=== PATIENT | male | born 1960 | race Caucasian/White ===

== ENCOUNTER 2018-02-17 17:31 | Inpatient (IN) | payer BC, OTHER ==
[~2018-02-17] VITALS: Ht 190.5 cm; Wt 110.5 kg
[2018-02-17 19:43] LABS: BASOPHILS # (AUTO) 0.01 x10^3/uL (0-0.1); BASOPHILS % (AUTO) 0 % (0-1); EOSINOPHILS # (AUTO) 0.22 x10^3/uL (0-0.4); EOSINOPHILS % (AUTO) 2 % (1-7); LYMPHOCYTES # (AUTO) 1.65 x10^3/uL (1-3.4); LYMPHOCYTES % (AUTO) 15 % (22-44); MD NO; MEAN CORPUSCULAR HEMOGLOBIN 31.7 pg (27.5-34.5); MEAN CORPUSCULAR HGB CONC 34.2 g/dL (33.2-36.2); MEAN CORPUSCULAR VOLUME 92.7 fL (81-97); MEAN PLATELET VOLUME 7.9 fL (7.4-10.4); MONOCYTES # (AUTO) 0.94 x10^3/uL (0.2-0.8); MONOCYTES % (AUTO) 8 % (2-9); NEUTROPHILS # (AUTO) 8.42 x10^3/uL (1.8-6.8); NEUTROPHILS % (AUTO) 75 % (42-75); PLATELET COUNT 193 x10^3/uL (130-400); RED BLOOD COUNT 4.67 x10^6/uL (4.38-5.82); RED CELL DISTRIBUTION WIDTH 13.5 % (9.4-14.8)
[2018-02-17 19:52] LABS: INTERNATIONAL NORMALIZED RATIO 0.97 (0.93-1.1); PROTHROMBIN TIME 10.3 Seconds (9.6-11.5)
[2018-02-17 19:53] LABS: ALBUMIN 3.6 g/dL (3.4-5.0); ANION GAP 5 mmol/L (5-15); CALCIUM 8.7 mg/dL (8.5-10.1); CHLORIDE 104 mmol/L (98-107)
[2018-02-17 19:54] LABS: CREATININE 0.94 mg/dL (0.7-1.3)
[2018-02-17] MEDS ORDERED: ENOXAPARIN 100 MG/ML ONE (20:26)
[2018-02-17] MEDS ORDERED: ENOXAPARIN 40 MG/0.4 ML ONE (20:26)
[2018-02-17] MEDS ORDERED: ENOXAPARIN 120MG/0.8ML SQ SCH (20:30)
[2018-02-17] MEDS ORDERED: WARFARIN HIGH DOSE PROTOCOL XX PRN (21:00)
[2018-02-17] MEDS ORDERED: BISACODYL 10 MG SUPP PR PRN (21:00)
[2018-02-17] MEDS ORDERED: POLYETHYLENE GLYCOL 17 GM PACKET PO PRN (21:00)
[2018-02-17] MEDS ORDERED: ONDANSETRON ODT 4 MG PO PRN (21:00)
[2018-02-17] MEDS ORDERED: NICOTINE 21 MG/24 HR PATCH.TD24 TD SCH (21:00)
[2018-02-17] MEDS ORDERED: ACETAMINOPHEN 325 MG TABLET PO PRN (21:00)
[2018-02-17] MEDS: SODIUM CHLORIDE FLUSH 10ML SYR IVF SCH (21:00)
[2018-02-17 23:15] VITALS: BP 105/55
[2018-02-17] MEDS ORDERED: WARFARIN 10 MG TABLET PO-COUM ONE (23:30)
[2018-02-18 02:16] VITALS: BP 103/56
[2018-02-18 05:52] LABS: BASOPHILS # (AUTO) 0.04 x10^3/uL (0-0.1); BASOPHILS % (AUTO) 0 % (0-1); EOSINOPHILS # (AUTO) 0.24 x10^3/uL (0-0.4); EOSINOPHILS % (AUTO) 3 % (1-7); LYMPHOCYTES % (AUTO) 21 % (22-44); MD NO; MEAN CORPUSCULAR HEMOGLOBIN 31.5 pg (27.5-34.5); MEAN CORPUSCULAR VOLUME 92.6 fL (81-97); MEAN PLATELET VOLUME 8.1 fL (7.4-10.4); MONOCYTES # (AUTO) 0.74 x10^3/uL (0.2-0.8); MONOCYTES % (AUTO) 8 % (2-9); NEUTROPHILS # (AUTO) 6.37 x10^3/uL (1.8-6.8); NEUTROPHILS % (AUTO) 69 % (42-75); PLATELET COUNT 186 x10^3/uL (130-400); RED BLOOD COUNT 4.45 x10^6/uL (4.38-5.82); RED CELL DISTRIBUTION WIDTH 13.2 % (9.4-14.8)
[2018-02-18 05:59] LABS: ALANINE AMINOTRANSFERASE 30 U/L (12-78); ANION GAP 3 mmol/L (5-15); CALCIUM 8.3 mg/dL (8.5-10.1); CHLORIDE 107 mmol/L (98-107); CREATININE 0.89 mg/dL (0.7-1.3)
[2018-02-18 06:02] LABS: ALKALINE PHOSPHATASE 101 U/L (45-117); BILIRUBIN,TOTAL 0.6 mg/dL (0.2-1.0); TOTAL PROTEIN 6.5 g/dL (6.4-8.2)
[2018-02-18] MEDS ORDERED: APIX5TAB PO (07:56)
[2018-02-18] MEDS ORDERED: ENOXAPARIN 120MG/0.8ML SQ SCH (08:00)
[2018-02-18 08:40] VITALS: BP 113/72
[2018-02-18] MEDS ORDERED: APIXABAN 5 MG TABLET PO SCH (09:00)
[2018-02-18] MEDS ORDERED: SENNA/DOCUSATE TABLET PO SCH (09:00)
[2018-02-18] MEDS: SODIUM CHLORIDE FLUSH 10ML SYR IVF SCH (09:11)
[2018-02-18] MEDS ORDERED: WARFARIN 5 MG TABLET PO-COUM SCH (18:00)
== END 2018-02-18 12:45 | disposition home or self-care (01) | DRG 300 ==
LOC: ED 19:38 → EDIP 20:27 → 4NOR 22:47 → DCLOUNGE 02-18 12:30
PROVIDERS: ADMIT Internal Medicine; ATTEND Internal Medicine
DX: I82.411 Acute embolism and thrombosis of right femoral vein (principal); J98.11 Atelectasis; E66.9 Obesity, unspecified; E78.00 Pure hypercholesterolemia, unspecified; E78.5 Hyperlipidemia, unspecified; F17.210 Nicotine dependence, cigarettes, uncomplicated; Z79.01 Long term (current) use of anticoagulants; Z68.30 Body mass index [BMI] 30.0-30.9, adult
CPT/HCPCS: 36415; 80048; 80053; 82040; 85025; 85610; 85730; 96374; 99285; G0378; J1650

== ENCOUNTER 2019-04-11 17:38 | Inpatient (IN) | payer OTHER ==
[~2019-04-11] VITALS: Ht 190.5 cm; Wt 107.7 kg
[~2019-04-11 17:38] MED LIST changes: -ASPI-650 PO; -LOVA40TA2 PO
[2019-04-11] MEDS ORDERED: SODIUM CHLORIDE FLUSH 10ML SYR IVF ONE (18:00)
[2019-04-11] MEDS ORDERED: ASPI-650 PO (18:09)
[2019-04-11] MEDS ORDERED: LOVA40TA2 PO (18:09)
--- NOTE | 2019-04-11 18:12 | NUR ---
RESTING IN BED, ASSESSMENT COMPLETED, RIGHT LEG NOTED TO BE SWOLLEN, +PULSES, LAB @ BEDSIDE FOR BLOOD, EKG IN PROCESS, LS CLEAR, SKIN INTACT, SPEECH CLEAR, [id number]
[2019-04-11 18:22] LABS: BASOPHILS # (AUTO) 0.03 x10^3/uL (0-0.1); BASOPHILS % (AUTO) 0 % (0-1); EOSINOPHILS # (AUTO) 0.16 x10^3/uL (0-0.4); EOSINOPHILS % (AUTO) 2 % (1-7); LYMPHOCYTES # (AUTO) 1.85 x10^3/uL (1-3.4); LYMPHOCYTES % (AUTO) 22 % (22-44); MD NO; MEAN CORPUSCULAR HEMOGLOBIN 30.9 pg (27.5-34.5); MEAN CORPUSCULAR HGB CONC 33.2 g/dL (33.2-36.2); MEAN PLATELET VOLUME 8.1 fL (7.4-10.4); MONOCYTES # (AUTO) 0.61 x10^3/uL (0.2-0.8); MONOCYTES % (AUTO) 7 % (2-9); NEUTROPHILS # (AUTO) 5.87 x10^3/uL (1.8-6.8); NEUTROPHILS % (AUTO) 69 % (42-75); PLATELET COUNT 226 x10^3/uL (130-400); RED BLOOD COUNT 4.55 x10^6/uL (4.38-5.82); RED CELL DISTRIBUTION WIDTH 13.7 % (9.4-14.8)
[2019-04-11 18:25] LABS: ALBUMIN 3.5 g/dL (3.4-5.0); ANION GAP 3 mmol/L (5-15); CALCIUM 8.6 mg/dL (8.5-10.1); CHLORIDE 106 mmol/L (98-107); CREATININE 0.91 mg/dL (0.7-1.3)
[2019-04-11 18:26] LABS: INTERNATIONAL NORMALIZED RATIO 0.94 (0.93-1.1)
--- NOTE | 2019-04-11 18:44 | NUR ---
IV placed to right ac, CT @ bedside to transport for CTA, vs updated
--- NOTE | 2019-04-11 18:50 | NUR ---
REPORT OF PT FROM WILLA FLOREZ AND ASSUMING CARE OF PT AT THIS TIME.
[2019-04-11] MEDS ORDERED: OMNIPAQUE 350 MG/ML, 100ML BOTTLE ONE (19:03)
[2019-04-11] MEDS ORDERED: SODIUM CHLORIDE FLUSH 10ML SYR IVF PRN (20:00)
[2019-04-11] MEDS ORDERED: HEPARIN 5,000 UNITS/ML, 1ML IV ONE (20:00)
[2019-04-11] MEDS ORDERED: HEPARIN 5,000 UNITS/ML, 1ML ONE ×2 (20:02→20:37)
[2019-04-11] MEDS ORDERED: HEPARIN 25,000 UNITS/250ML PMX 250 ML ONE (20:03)
--- NOTE | 2019-04-11 20:19 | NUR ---
UPDATED PT WEIGHT TO SCANDING SCALE WEIGHT. CALLED AND SPOKE TO LB IN PHARMACY TO VERIFY HEPARIN RATE WITH NEW WEIGHT. PER LB, DOSE AND INITIAL RATE WILL NOT CHANGE. OKAY TO START HEPARIN DRIP PER APR. NO PUMPS LOCATED IN ER. OXYGEN THERAPIST EDMOND NOTIFIED AND ANURADHA HARPER CALLING FOR PUMPS AT THIS TIME.
[2019-04-11] MEDS: HEPARIN 25,000 UNITS/250ML PMX 250 ML IV PRN (20:33)
[2019-04-11] MEDS ORDERED: ACETAMINOPHEN 325 MG TABLET PO PRN (21:00)
[2019-04-11] MEDS ORDERED: ONDANSETRON ODT 4 MG PO PRN (21:00)
[2019-04-11] MEDS ORDERED: POLYETHYLENE GLYCOL 17 GM PACKET PO PRN (21:00)
[2019-04-11] MEDS ORDERED: OXYcodone IR 5MG TABLET PO PRN (21:00)
[2019-04-11] MEDS ORDERED: BISACODYL 10 MG SUPP PR PRN (21:00)
[2019-04-11 21:15] VITALS: BP 139/90
[2019-04-11] MEDS: SODIUM CHLORIDE FLUSH 10ML SYR IVF SCH (21:29)
[2019-04-11] MEDS: LOVASTATIN 40 MG TABLET PO SCH (21:29)
[2019-04-12 02:25] LABS: BASOPHILS # (AUTO) 0.04 x10^3/uL (0-0.1); BASOPHILS % (AUTO) 1 % (0-1); EOSINOPHILS % (AUTO) 3 % (1-7); LYMPHOCYTES # (AUTO) 1.81 x10^3/uL (1-3.4); LYMPHOCYTES % (AUTO) 25 % (22-44); MD NO; MEAN CORPUSCULAR HEMOGLOBIN 30.8 pg (27.5-34.5); MEAN CORPUSCULAR HGB CONC 33.1 g/dL (33.2-36.2); MEAN CORPUSCULAR VOLUME 92.9 fL (81-97); MEAN PLATELET VOLUME 8.3 fL (7.4-10.4); MONOCYTES % (AUTO) 7 % (2-9); NEUTROPHILS % (AUTO) 64 % (42-75); PLATELET COUNT 211 x10^3/uL (130-400); RED BLOOD COUNT 4.37 x10^6/uL (4.38-5.82); RED CELL DISTRIBUTION WIDTH 13.5 % (9.4-14.8)
[2019-04-12] MEDS: HEPARIN 5,000 UNITS/ML, 1ML IV PRN ×3 (03:24→17:07)
[2019-04-12 03:28] VITALS: BP 131/80
[2019-04-12 06:50] VITALS: BP 123/75
[2019-04-12] MEDS: SENNA/DOCUSATE TABLET PO SCH (08:02)
[2019-04-12] MEDS: SODIUM CHLORIDE FLUSH 10ML SYR IVF SCH ×2 (08:02→20:45)
[2019-04-12] MEDS: HEPARIN 25,000 UNITS/250ML PMX 250 ML IV PRN ×2 (10:23→17:09)
[2019-04-12 12:18] VITALS: BP 130/85
[2019-04-12 20:19] VITALS: BP 133/82
[2019-04-12] MEDS: LOVASTATIN 40 MG TABLET PO SCH (20:44)
[2019-04-13 00:47] VITALS: BP 98/55
[2019-04-13] MEDS: HEPARIN 5,000 UNITS/ML, 1ML IV PRN ×2 (01:24→10:49)
[2019-04-13 06:58] VITALS: BP 115/72
[2019-04-13] MEDS: SODIUM CHLORIDE FLUSH 10ML SYR IVF SCH (07:47)
[2019-04-13] MEDS: HEPARIN 25,000 UNITS/250ML PMX 250 ML IV PRN (08:33)
[2019-04-13] MEDS: SENNA/DOCUSATE TABLET PO SCH (08:34)
[2019-04-13] MEDS ORDERED: APIX5TAB PO (12:02)
[2019-04-13 12:05] VITALS: BP 125/80
== END 2019-04-13 14:49 | disposition home or self-care (01) | DRG 299 ==
LOC: ED 19:55 → EDIP 20:01 → ED 20:41 → 4EST 21:17 → DCLOUNGE 04-13 14:27
PROVIDERS: ADMIT Family Medicine; ATTEND Family Medicine
DX: I82.412 Acute embolism and thrombosis of left femoral vein (principal); I26.99 Other pulmonary embolism without acute cor pulmonale; E78.5 Hyperlipidemia, unspecified; F17.210 Nicotine dependence, cigarettes, uncomplicated; I70.0 Atherosclerosis of aorta; I82.432 Acute embolism and thrombosis of left popliteal vein
CPT/HCPCS: 36415; 71275; 80048; 82040; 85025; 85520; 85610; 85730; 93005; 93306; 96374; G0378; J1644; Q9967

== ENCOUNTER → 2019-04-11 | Outpatient (CLI) | payer SELFPAY ==
[~2019-04-11] MED LIST: APIX5TAB PO; ASPI-650 PO; LOVA40TA2 PO
== END | disposition home or self-care (01) ==
LOC: CFH 15:47
PROVIDERS: ATTEND Family Medicine
DX: I82.402 Acute embolism and thrombosis of unspecified deep veins of left lower extremity (principal); M79.89 Other specified soft tissue disorders